=== PATIENT | male | born 1965 | race African-American/Black ===

== ENCOUNTER 2022-05-17 11:53 | Observation (INO) | payer BC ==
[~2022-05-17] VITALS: Ht 190.5 cm; Wt 175.0 kg
[~2022-05-17 11:53] MED LIST: CIPRO500 MG PO; FLAGYL500 MG PO; LORTAB 7.5 PO; SEPTRA DS1 TAB PO
[2022-05-17 13:06] VITALS: BP 179/83
--- NOTE | 2022-05-17 13:06 | NUR ---
PT AMBUALTORY TO ROOM
--- NOTE | 2022-05-17 14:00 | NUR ---
Reassessment of patient completed. No distress noted.
[2022-05-17 14:24] LABS: IMMATURE GRANULOCYTES 0.1 % (0.0-5.0); MEAN CORPUSCULAR HGB 30.6 pG CALC (26.0-32.0); MEAN CORPUSCULAR HGB CONC 33.6 g/dL CAL (32.0-36.0); NEUT# 4.79 thou/uL (1.82-7.42); RED BLOOD COUNT 6.54 mill/uL (4.70-6.10); RED CELL DISTRI WIDTH 15.6 % (11.5-15.5)
[2022-05-17 14:26] LABS: HEMATOCRIT 59.5 % (39.0-50.0)
[2022-05-17 14:35] LABS: ALBUMIN 4.1 g/dL (3.2-5.0); ALKALINE PHOSPHATASE 91 u/l (38-126); BUN 11 mg/dL (9-20); BUN/CREATININE RATIO 13 (12-20 (CALC)); CHLORIDE 106 mmol/l (95-108); CREATININE 0.8 mg/dL (0.7-1.3); GFR FOR AFR.AMER. > 60 ML/MIN (>=60 (CALC)); GFR OTHER RACES > 60 ML/MIN (>=60 (CALC)); POTASSIUM 3.7 mmol/l (3.5-5.1); SGOT/AST 26 u/l (17-59); SODIUM 141 mmol/l (137-146); TOTAL PROTEIN 8.3 g/dL (6.3-8.2)
[2022-05-17 14:43] LABS: ANION GAP 10 (6-22 (CALC)); BILIRUBIN, TOTAL 0.6 mg/dL (0.0-1.4); CARBON DIOXIDE 29 mmol/l (22-30)
--- NOTE | 2022-05-17 15:00 | NUR ---
Reassessment of patient completed. No distress noted.
[2022-05-17 15:42] VITALS: BP 157/74
--- NOTE | 2022-05-17 16:00 | NUR ---
Reassessment of patient completed. No distress noted.
--- NOTE | 2022-05-17 17:00 | NUR ---
Reassessment of patient completed. No distress noted.
--- NOTE | 2022-05-17 18:06 | NUR ---
REPORT GIVEN TO PATTY AT THIS TIME
--- NOTE | 2022-05-17 19:30 | NUR ---
PATIENT RESTING IN BED AT THIS TIME-AWAKE ALERT AND ORIENTEDX3. PATIENT ADMITTED FOR ABCESS LEFT BUTTOCKS-DR. CHINO CONSULTED AND WILL SEE THE PATIENT IN AM. PATIENT AWAKE ALERT AND ORIENTEDX3. APPETITE WAS GOOD FOR DINNER. IV VANCO INFUSING AT THIS TIME VIA LEFT AC SITE. SITE IS HEALTHY AT THIS TIME. ADMISSION ASSESSMENT COMPLETED. ORIENTED PATIENT TO ROOM AND SURROUNDINGS. SAFETY PRECAUTIONS REINFORCED. CALL LIGHT IN REACH. WILL CONT TO MONITOR.
[2022-05-17 20:26] VITALS: BP 144/51
--- NOTE | 2022-05-17 21:00 | NUR ---
RESTING IN BED AT THIS TIME. ROCEPHIN INFUSING ORDERED VIA LAC. NO COMPLAINTS AT THIS TIME. VOIDING QS CLEAR YELLOW URINE. STATES THAT HE DID HAVE BM THIS MORNING. INSTRUCTED NPO AFTER MN FOR POSSIBLE PROCEDURE IN AM. CALL LIGHT IN REACH. WILL CONT TO MONITOR.
[2022-05-17 21:40] LABS: URINE BILIRUBIN - DIPSTICK NEGATIVE (NEGATIVE); URINE BLOOD DIPSTICK TRACE-INTACT (NEGATIVE); URINE COLOR YELLOW; URINE GLUCOSE - DIPSTICK NEGATIVE (NEGATIVE); URINE KETONE NEGATIVE (NEGATIVE); URINE LEUK ESTERASE NEGATIVE (NEGATIVE); URINE PH 5.5 (4.5-8.0); URINE PROTEIN - DIPSTICK NEGATIVE (NEG-TRACE); URINE UROBILINOGEN - DIPSTICK 0.2 E.U./dL (0.2)
[2022-05-17 21:41] LABS: URINE NITRITE - DIPSTICK NEGATIVE (Negative)
--- NOTE | 2022-05-18 00:11 | NUR ---
PATIENT RESTING IN BED AT THIS TIME-EYES ARE CLOSED AND RESPS ARE EVEN AND UNLABORED. NPO FOR PROCEDURE TOMORROW. IVF PATENT AND INFUSING VIA LAC SITE AT 100CC/HR. CALL LIGHT IN REACH. WILL CONT TO MONITOR.
--- NOTE | 2022-05-18 02:37 | NUR ---
RFESPONDED TO CALL LIGHT AND FOUND PATIENT IN THE BR-ABCESS HAS OPENED UP-DRAINING FIRST BROWNISH RED FOUL SMELLING FLUID-THAN JUST BLOODY DRAINAGE. AREA WAS CLEANED UP WITH SALINE AND DRESSING APPLIED BETWEEN THE BUTT CHEEKS. PATIENT STATES THAT IT FEELS BETTER NOW THAN IT IS DRAINING. OFFER PAIN MED BUT PATIENT DECLINED AT THIS TIME. IVF PATENT AND INFUSING VIA LAC SITE AT 100CC/HR. SITE REMAINS HEALTHY. REMAINS NPO FOR PROCEDURE LATER TODAY. SITTING UP IN RECLINER AT THIS TIME. WILL CONT TO MONITOR.
--- NOTE | 2022-05-18 03:09 | NUR ---
SPOKE WITH CHELSIE AT [facility] REGUARDING THE VANCO SCHEDULED FOR 0400. PATIENT RECEIVED DOSE IN ER AT 1730 FOR VANCO 1 GM ORDERED [id number]. CHELSIE STATES THAT THE PHARM AT [facility] PLACED ANOTHER DOSE FOR 0400 BECAUSE DUE TO PATIENT WEIGHT HE SHOULD BE RECIEVING HIGHER DOSE BUT THEY DO NOT HAVE ORDER FOR PHARM TO DOSE SO SHE WILL NOT CHANGE THE ORDER. WILL FOLLOW ORIGINAL ORDER OF VANCO 1GM [id number] AND CONSULT [facility] AND DR. URENA IN THE AM. WILL CONT TO [facility].
[2022-05-18 05:11] VITALS: BP 127/55
--- NOTE | 2022-05-18 05:32 | NUR ---
PATIENT RESTING IN BED AT THIS TIME. VANCO INFUSING ORDERED VIA LAC SITE. REMAINS NPO FOR POSS OR TODAY. REMAINS NPO. CONSENT SIGNED. CALL LIGHT IN REACH. WILL CONT TO MONITOR.
[2022-05-18 05:33] LABS: MEAN CORPUSCULAR HGB 30.6 pG CALC (26.0-32.0); MEAN CORPUSCULAR HGB CONC 33.2 g/dL CAL (32.0-36.0); RED BLOOD COUNT 4.25 mill/uL (4.70-6.10); RED CELL DISTRI WIDTH 14.2 % (11.5-15.5)
[2022-05-18 05:34] LABS: HEMATOCRIT 39.1 % (39.0-50.0)
[2022-05-18 05:56] LABS: ANION GAP 7 (6-22 (CALC)); BUN 11 mg/dL (9-20); BUN/CREATININE RATIO 13 (12-20 (CALC)); CARBON DIOXIDE 28 mmol/l (22-30); CHLORIDE 107 mmol/l (95-108); CREATININE 0.9 mg/dL (0.7-1.3); GFR FOR AFR.AMER. > 60 ML/MIN (>=60 (CALC)); GFR OTHER RACES > 60 ML/MIN (>=60 (CALC)); MAGNESIUM 1.8 mg/dL (1.6-2.3); POTASSIUM 3.9 mmol/l (3.5-5.1); SODIUM 138 mmol/l (137-146)
[2022-05-18 06:17] VITALS: BP 127/58
--- NOTE | 2022-05-18 07:00 | NUR ---
PT REPORT RECIEVED FROM WAX BLEACHER
[2022-05-18 08:00] VITALS: BP 127/58
--- NOTE | 2022-05-18 08:50 | NUR ---
PT RESTING IN HIGH FOWLERS POSITION. A/OX3 ASSESSMENT AND VS COMPLETED. HEART RHYHTM NORMAL .RESPIRATIONS EVEN AND UNLABORED. BOWEL SOUNDS ACTIVE. PT REPORT FROM MAIL HANDLER STATED CYST BUSTED/DRAINED. PT TRANSFER TO OR @1230. PT IS AWARE. AREA UNABLE TO OBSERVE . MAIL HANDLER STATED 4X4 BEN ON WOUND. ALL SAFETY PRECAUTIONS IN PLACE. WITH CALL LIGHT IN REACH. PT NPO.
--- NOTE | 2022-05-18 09:14 | NUR ---
S: PAULA DOYLE is a 56 M who presents with abscess. He has no past medical history. All medications in patient's chart were reviewed. O: VS: BP 127/58 mmHg, P 72 beats/min, RR 18 breaths/min, T 96.7 F W 175 kg, HT 73 inches, Scr= 0.9 mg/dL, CrCl= 152.8 ml/min A: Blood culture from 05/17/2022 is pending. P: Patient is on ceftriaxone 1 g iv q24h. Vancomycin ordered for pharmacy to dose. Start Vancomycin 1250 mg IV Q8H. Vancomycin trough is drawn before the 4th dose on 05/18/2022 at 1830. The first two doses given to pt were 1g (05/17 @ 1730 and 05/18 @ 0300); counting these toward scheduling of trough. Vancomycin goal trough is between <10-15 mcg/ml>. Pharmacy will follow and or advise on antibiotics use as needed.
--- NOTE | 2022-05-18 11:21 | NUR ---
PT NO LONGER HAVING SURGERY. PT NO LONGER NPO PROVIDER ORDERS. PT CAN HAVE FOLLOW UP OUT PT. WITH DR. SUBRAMANIAN .
[2022-05-18] MEDS ORDERED: KEFLEX500 MG PO (11:33)
--- NOTE | 2022-05-18 12:07 | NUR ---
PT TO BE DC. PT READY. PT WAITING FOR VANCO MEDICATION TO FINISH ALL SAFETY PRECAUTIONS IN PLACE.
--- NOTE | 2022-05-18 12:55 | NUR ---
PT DC INSTRUCTIONS PROVIDED. PT STATED UNDERSTANDING. ALL SAFETY PRECAUTIONS IN PLACE.
--- NOTE | 2022-05-18 13:13 | NUR ---
Discharge instructions given. Patient verbalizes understanding of same. Discharged in stable condition via Wheelchair to Home with staff. All belongings sent with pt. NO IV REMOVED
== END 2022-05-18 13:13 | disposition home or self-care (01) | DRG 603 ==
LOC: ED 11:53 → ED-I 15:30 → ED 16:47 → MS2 16:48
PROVIDERS: Family Medicine; ADMIT Hospitalist; ATTEND Hospitalist
DX: L02.31 Cutaneous abscess of buttock (principal); I10 Essential (primary) hypertension; E66.9 Obesity, unspecified; Z20.822 Contact with and (suspected) exposure to COVID-19
CPT/HCPCS: G0378; J1650; J3370; Q9967

== ENCOUNTER 2023-02-11 09:10 | Emergency (ER) | payer OTHER ==
[~2023-02-11] VITALS: Ht 190.5 cm; Wt 166.9 kg
[~2023-02-11 09:10] MED LIST changes: +KEFLEX500 MG PO
[2023-02-11] MEDS ORDERED: BACTRIM DS1 TAB PO (09:49)
[2023-02-11 10:33] VITALS: BP 132/66
== END 2023-02-11 10:38 | disposition home or self-care (01) | DRG 603 ==
LOC: ED 09:10
PROC: 0H98XZZ Drainage of Buttock Skin, External Approach (ICD-10-PCS; principal; 2023-02-11)
DX: L05.91 Pilonidal cyst without abscess (principal); E66.01 Morbid (severe) obesity due to excess calories